=== PATIENT | female | born 2000 | race Caucasian/White ===

== ENCOUNTER 2023-09-29 21:16 | Emergency (ER) | payer OTHER, SELFPAY ==
[2023-09-29 21:21] VITALS: BP 124/73
[2023-09-29 22:00] VITALS: BP 116/81
--- NOTE | 2023-09-29 22:15 | EDRN ---
earliest appt. 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 Pt wants to be sedated to have area drained.
[2023-09-29 23:39] VITALS: BP 104/72
[2023-09-30] VITALS: BP 93/62
[2023-09-30] MEDS: VERSED 2 MG IV (00:36)
[2023-09-30 00:41] VITALS: BP 93/62
[2023-09-30 00:52] VITALS: BP 107/67
[2023-09-30 01:00] VITALS: BP 108/49
[2023-09-30] MEDS: BACTRIM DS 800 MG/160 MG 1 TABLET PO (01:00)
--- NOTE | 2023-09-30 01:00 | ED.GENMED ---
History of Present Illness
General
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
Source: patient and family
Exam Limitations: none
Time Seen by Provider: 09/29/23 22:11
History of Present Illness
History of Present Illness:
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 Patient did present her marble setter today but was seen by the physician janitorial assistant and was hoping to get scheduled for surgery for removal. She
already has had marsupialization but it returned. The patient states her first encounter they drained it but it came back. Patient states that it got infected at that time. Patient denies fevers but does report discomfort. Patient states that
she was hoping to wait until her visit on Monday when she sees a marble setter again but because of the pain she presents. She also reports that her first event with drainage did not go well and was severely painful.
Past History
Past History
ED Past Medical History: Other (Bartholin cyst)
ED Past Surgical History: Gynecological (Marsupialization of Bartholin cyst)
Phy Exam
Physical Exam
Physical Exam:
CONSTITUTIONAL Vital signs reviewed, Patient alert and oriented to person, place and time. Well-appearing
HEAD atraumatic, normocephalic.
EYES eyelids normal to inspection, Extraocular muscles intact, Conjunctiva normal, Sclera normal.
NECK normal range of motion, Trachea midline, no jugular venous distention.
RESP no respiratory distress
BACK No obvious deformities
Gynecologic exam large fluctuant mass to the left labia., No surrounding redness or cellulitis
UPPER EXTREMITY Gross Range of motion normal, gross motor strength normal
LOWER EXTREMITY Gross range of motion normal, Gross motor strength normal
NEURO Speech normal, No focal motor deficits include, [place] coma scale 15, Memory normal, Cranial Nerves intact to screening exam.
SKIN Skin warm, dry, and normal in color.
PSYCHIATRIC Patient oriented to person place and time, Normal affect.
Course
Orders/Labs/Results
Orders:
Orders
09/30/23 00:23
Midazolam HCl [Versed] 2 mg IV NOW STA
09/30/23 00:54
Sulfamethox./Trimethoprim Ds [Bactrim Ds 800 mg/160 mg] 1 tablet PO NOW STA
09/30/23 00:57
Wound Culture [Wound/Abscess/Other Culture] Urgent
KAREEN Source: Cyst
Specimen Description:
Date Specimen was Collected: 09/30/23
Time Specimen was Collected: 01:00
Comment: L vaginal wall
Vital Signs
Initial and Last Documented VS:
Initial Vital Signs
Temp Pulse Resp BP Pulse Ox
98.7 F 70 20 124/73 97
09/29/23 21:21 09/29/23 21:21 09/29/23 21:21 09/29/23 21:21 09/29/23 21:21
Last Documented Vital Signs
Temp Pulse Resp BP Pulse Ox
98.7 F 82 16 93/62 98
09/29/23 21:21 09/30/23 00:41 09/30/23 00:41 09/30/23 00:41 09/30/23 00:41
Procedures
Incision/Drainage/Joint Aspiration
Left Vagina:
Anethesia: 1% Lidocaine with Epi
Preparation: cleaned with Betadine
Type of procedure: aspiration
Nature of site: cyst
Description of abscess: less than 3cm
How much fluid was obtained?: small amount (Four cc's)
Fluid description: purulent
Treatment: left open for drainage
MDM/Problems Addressed
MDM/Problems Addressed:
Infected Bartholin's gland cyst
*Pulse Oximetry
Patient hypoxic: no
*Critical Care Note
Total Time (30-74mins, 75-104mins- exclusive of procedures): Not Applicable
Data Reviewed
Source: patient and family
Prescriptions/Medications Considered But Not Given:
Consider sedation with patient tolerated procedure well
Patient Management
Escalation/DeEscalation of care consider admission/obs:
Long discussion with the patient. Considered placing a Word catheter and full drainage with incision but patient really would like the cyst removed. She prefers needle aspiration at this time. Needle aspiration does reveal purulence. Will cover
with antibiotics. Advised warm soaks. If symptoms return she may need to return the emergency department for more formal incision and drainage. Patient is aware of that risk
ED Attending Note
-
Portions of this chart may have been created with voice recognition software.� Occasional wrong word or��sound alike� substitutions may have occurred due to the inherent limitations of voice recognition software.
Discharge Plan
Departure
Patient Disposition: Home (Routine Discharge)
Date of Disposition: 09/30/23
Time of Disposition: 01:06
Patient with high blood pressure during this ER visit?: No
Discharge Problem:
Infected cyst of Bartholin gland duct
Instructions: Bartholin gland cyst
Prescriptions:
New
sulfamethoxazole-trimethoprim [Bactrim DS] 800-160 mg tablet
1 tab PO BID Qty: 14 0RF
No Action
ibuprofen [Advil] 200 MG tablet
400 mg PO PRN PRN (Reason: pain/fever)
Referrals:
Sue Johnson MD [Family Provider] -
Activity Restrictions/Additional Instructions:
Please apply warm soaks or compresses as discussed. Return immediately for fevers, increased swelling, or any other concerns. Please see your marble setter as planned on Monday for further evaluation and planning.
Interventions
Interventions:
*Risk Screen - Suicide Last Done: 09/29/23 21:21
*General Assessment Last Done: 09/29/23 21:21
*Neglect/Abuse Screening Last Done: 09/29/23 21:21
ED- Fall Risk Assessment Last Done: 09/29/23 21:21
*ED COVID-19 Vaccine History Last Done: 09/29/23 21:21
ED-Female Genitourinary Assessment Last Done: 09/29/23 22:11
Discharge Date and Time
Print Language: AMERICAN
== END 2023-09-30 01:20 | disposition home or self-care (01) ==
LOC: EMR 21:16
PROVIDERS: EMERGENCY PHYSICIAN Emergency Medicine; FAMILY PHYSICIAN Family Medicine
DX: N75.0 Cyst of Bartholin's gland (principal)
CPT/HCPCS: 99283; 10160; 96374; 87070; 87077; 87186; 87205